=== PATIENT | female | born 1955 | race Caucasian/White ===

== ENCOUNTER 2024-01-09 05:31 | Observation (INO) ==
--- NOTE | 2023-12-30 09:45 | Anesthesiology Consultation ---
Date of Service December 30, 2023 Assessment & Plan (1) Encounter for pre-operative examination: - Infectious disease screening: Per assessment on 12/30/23: No known infectious disease contacts or current infectious disease symptoms. No noted recent Covid positive test result. - Preop testing: No recent/noted EKG. Will order EKG for DOS. Chart Review Chart Review: Acceptable Risk for Surgery (pending preop EKG DOS) and Patient NOT seen in Pre Admission Testing History Surgery Operation Date: 01/09/24 10:50 Proposed Procedures p Robotic Assisted Hysterectomy, Bilateral Salpingo-Oophorectomy, Robotic Sacral Colpopexy - Lenin Corrigan MD Height/Weight Height: 5 ft 3 in Weight: 72.121 kg Allergies Allergy/AdvReac Type Severity Reaction Status Date / Time Penicillins Allergy Unknown Rash Verified 12/30/23 07:53 sulfamethoxazole Allergy Unknown Rash Verified 12/30/23 07:53 [From Bactrim] trimethoprim [From Bactrim] Allergy Unknown Rash Verified 12/30/23 07:53 Medications Home Medications Medication Instructions Recorded Confirmed Last Taken atorvastatin 10 mg tablet 5 mg PO PM 04/30/19 12/30/23 06/21/19 22:30 levothyroxine 112 mcg capsule 112 mcg PO QAM 04/30/19 12/30/23 06/22/19 05:30 vitamin B12 2,500 mcg-folic acid 1 tab PO QPM 12/30/23 12/30/23 Unknown 400 mcg disintegrating tablet Past Medical History Medical History Hyperlipidemia Hypothyroidism Prolapse of female bladder, acquired Past Family History Family History Mother Family history of reaction to anesthesia Mother "stopped breathing" during colonoscopy- felt to be r/t Versed per patient Father Family history of diabetes mellitus Past Surgical History Surgical History Family history of anesthesia complication Mother "stopped breathing" during colonoscopy- felt to be r/t Versed per patient History of bilateral tubal ligation History of colonoscopy History of foot surgery right hammertoe Hx of bilateral cataract extraction Hx of wisdom tooth extraction Social History Smoking Status: Never smoker Do You Dip or Chew Tobacco: No Hx Alcohol Use: No Hx Substance Use: No substance use type: does not use Lab Results Anesthesia Preop Results Results Anesthesia Widget: WBC 5.19 K/ul (4.8-10.8) 12/24/23 Hgb 13.5 g/dl (12.0-16.0) 12/24/23 Hct 41.9 % (37.0-47.0) 12/24/23 Plt 199 K/uL (130-400) 12/24/23 Na 140 mmol/L (136-145) 12/24/23 K 3.7 mmol/L (3.5-5.1) 12/24/23 Cl 106 mmol/L (98-107) 12/24/23 CO2 29 mmol/L (21-32) 12/24/23 BUN 17 mg/dl (6-23) 12/24/23 Creat 0.98 mg/dl (0.6-1.2) 12/24/23 Glucose Level 87 mg/dl (70-99(Fasting)) 12/24/23 Blood Type O Positive 12/24/23 Antibody Screen NEGATIVE 12/24/23
--- NOTE | 2024-01-09 05:17 | History & Physical Report ---
Date of Service January 09, 2024 Assessment & Plan (1) Uterovaginal prolapse, incomplete: Plan: We reviewed uterovaginal prolapse and therapy options. She is not interested in pessary therapy or vaginal robinson tissue repair. She prefers robotic hysterectomy, bso, sacral colpopexy, possible sling, cystoscopy. We reviewed the risks of infection, bleeding, injury, pain, mesh exposure, urinary retention, incontinence, recurrence. All questions answered. Informed consent confirmed. Present on Admission?: Yes Admission and Anticipated Discharge Date Admission Date: 01/09/2024 Anticipated date of discharge: 01/10/24 History of Present Illness Chief Complaint: Vaginal prolapse Primary Care Provider: Kathryn Young Ofe Nina is a 68 year old female P2 with a palpalbe vaginal bulge and pelvic pressure. She has occasional urgency and urge incontinence. Denies INES. Allergies Allergy/AdvReac Type Severity Reaction Status Date / Time Penicillins Allergy Unknown Rash Verified 12/30/23 07:53 sulfamethoxazole Allergy Unknown Rash Verified 12/30/23 07:53 [From Bactrim] trimethoprim [From Bactrim] Allergy Unknown Rash Verified 12/30/23 07:53 Home Medications Medication Instructions Recorded Confirmed Type atorvastatin 10 mg tablet 5 mg PO PM 04/30/19 12/30/23 History levothyroxine 112 mcg capsule 112 mcg PO QAM 04/30/19 12/30/23 History vitamin B12 2,500 mcg-folic acid 1 tab PO QPM 12/30/23 12/30/23 History 400 mcg disintegrating tablet Past Med/Surg History Medical History Prolapse of female bladder, acquired Hypothyroidism Hyperlipidemia Surgical History Family history of anesthesia complication Mother "stopped breathing" during colonoscopy- felt to be r/t Versed per patient Hx of wisdom tooth extraction Hx of bilateral cataract extraction History of foot surgery right hammertoe History of colonoscopy History of bilateral tubal ligation Family History Mother Family history of reaction to anesthesia Mother "stopped breathing" during colonoscopy- felt to be r/t Versed per patient Father Family history of diabetes mellitus Social History Smoking Status: Never smoker Second Hand Exposure: No; Do You Dip or Chew Tobacco: No; Tobacco Cessation Education Requested by Patient: No Hx Alcohol Use: No Hx Substance Use: No Preferred Language: Qatari Communication Ability: Effective General Education Instructor Required: No Beliefs That Will Affect Care: None Current Living Situation: Spouse Other Information That Helps Us Care for You: No Feels Safe at Home: Yes Safety Concerns: Feels Safe At This Time Assistive Devices: Glasses Review of Systems Review of Systems: All systems reviewed & are unremarkable except as noted in HPI & below Physical Exam Constitutional: WD/WN, vitals as above Eyes: PERRL, conjunctivae normal, anicteric sclerae Neck: trachea midline, no thyromegaly Respiratory: normal respiratory effort Cardiovascular: Rate/Rhythm: regular rate and regular rhythm Gastrointestinal (Abdomen): normal bowel sounds, soft, nontender, no hepatosplenomegaly Musculoskeletal: Extremities: extremities normal to inspection Skin: no rashes, warm and dry Psychiatric: A+Ox3, euthymic affect Code Status & VTE Plan VTE Prophylaxis Plan VTE Prophylaxis will be ordered: Yes
[~2024-01-09 05:31] MED LIST: GENTAMICIN CONSULT ACTIVE PRN
[2024-01-09] MEDS ORDERED: GENTAMICIN SULFATE 300 MG in DEXTROSE 5% 100 ML IV SCH (06:00)
[2024-01-09] MEDS: LR 15ML/HR IV SCH (06:17)
[2024-01-09] MEDS: GENTAMICIN SULFATE 300 MG in DEXTROSE 5% 100 ML IV SCH (06:31)
[2024-01-09] MEDS ORDERED: PROPOFOL IV EMULSION 10 MG/ML 20 ML VIAL IV ONE ×8 (06:49→06:54)
[2024-01-09] MEDS ORDERED: DEXAMETHASONE SOD INJ 4 MG/ML VIAL ONE (06:50)
[2024-01-09] MEDS ORDERED: LIDOCAINE 2% 2 ML VIAL/AMP(20MG/ML) INFIL ONE (06:50)
[2024-01-09] MEDS ORDERED: fentaNYL citrate PF 100 MCG/2 ML VIAL ONE ×2 (06:50→08:01)
[2024-01-09] MEDS ORDERED: MIDAZOLAM HCL 1 MG/ML 2ML VIAL ONE (06:50)
[2024-01-09] MEDS ORDERED: ROCURONIUM BROMIDE 10 MG/ML 5 ML VIAL IV ONE ×2 (06:50→08:00)
[2024-01-09] MEDS ORDERED: ONDANSETRON INJ 2 MG/ML 2 ML VIAL ONE (06:50)
[2024-01-09] MEDS ORDERED: ATROPINE SULFATE 0.1 MG/ML 10ML SYR IV PRN (06:55)
[2024-01-09] MEDS ORDERED: ONDANSETRON INJ 2 MG/ML 2 ML VIAL IV PRN ×2 (06:55→10:25)
[2024-01-09] MEDS ORDERED: HYDROmorphone INJ 2 MG/ML SYR/VIAL IV PRN (06:55)
[2024-01-09] MEDS ORDERED: ePHEDrine sulfate 50 MG/ML AMP IV PRN (06:55)
[2024-01-09] MEDS: metroNIDAZOLE 500 MG/100 ML BAG IV SCH (07:37)
[2024-01-09] MEDS ORDERED: ePHEDrine sulfate 50 MG/5 ML SYR ONE (08:03)
[2024-01-09] MEDS: PREMARIN VAG CRM 14 APPLN/30 GM TUBE ONE (08:55)
[2024-01-09] MEDS ORDERED: SUGAMMADEX SODIUM 200 MG/2 ML VIAL IV ONE (09:22)
[2024-01-09] MEDS: BUPIVACAINE/EPINEPHRINE 0.5% MPF 1:200,000 30 ML VIAL ONE (10:13)
[2024-01-09] MEDS: BUPIVACAINE 0.5 % 5 MG/1 ML MPF 30ML VIAL ONE (10:14)
[2024-01-09] MEDS ORDERED: oxyCODONE/ACETAMINOPHEN 5mg/325mg TAB PO PRN ×2 (10:25)
[2024-01-09] MEDS: fentaNYL citrate PF 100 MCG/2 ML VIAL IV PRN (10:32)
--- NOTE | 2024-01-09 10:36 | Operative Report ---
Post Operative Report Pre & Post Diagnosis Operation Date: 01/09/24 07:30 Pre-Op Diagnosis: Uterovaginal Prolapse Post-Op Diagnosis: Uterovaginal Prolapse I identified the patient and participated in the time-out.: Yes Procedure Operation Date: 01/09/24 07:30 Actual Procedures p Robotic Assisted Hysterectomy, Bilateral Salpingo-Oophorectomy, Robotic Sacral Colpopexy, Cystoscopy(Not Applicable) - Lenin Corrigan MD Surgeon Lenin Corrigan MD Plasterer Maintenance Aster Saldana PA-C Estimated Blood Loss 25 Findings Consistent with Post-Op Diagnosis Grade 3 uterine prolapse, cystocele. Normal appearing tubes, ovaries, cervix and uterus. Normal cystoscopy with excellent efflux of ureters Fluids crystalloid Specimens cervix, uterus, tubes, and ovaries Drains Haskins catheter Anesthesia Type General Complications none Disposition Accompanied Patient To Recovery: Yes Disposition: Recovery Room Indications Symptomatic uterovaginal prolapse Description of Procedure After Ofe Nina was identified in the preoperative area, we discussed the indications, risks, and benefits of the procedure. All questions answered. Informed consent signed. Patient was then taken to the operating room, placed comfortably in stirrups, given general anesthesia by anesthesia service, and placed in dorsal lithotomy position. She was prepped and draped in the usual sterile fashion. Time out was performed. A haskins catheter was placed. The cervix was grasped with a single tooth tenaculum and was sounded to 8 cm. The cervix was dilated and a medium V-care uterine manipulator was applied. Abdominally, the umbicilus was infiltrated with local anesthesia. An 8 mm incision was made and an 8 mm trocar was advanced under direct visualization into the abdominal cavity. The abdomen was insufflated. Two 8 mm trocars were placed on the left and two 8 mm trocars were placed on the right. The patient was placed in trendelenburg to allow the small bowel to retract out the pelvis. The robot was docked. The ureters were identified. The IP ligaments were ve ssel sealed and transected bilaterally. The round ligaments were vessel sealed and transected bilaterally. The bladder flap was developed. The uterine vessels were dissected. The uterine vessels were vessel sealed and transected at the level of the cervical cup bilaterally. The colpotomy incision was made. The cervix, uterus, tubes and ovaries were delivered out the vagina. The vaginal cuff was closed with 0 V-Lock suture in two layers. The bladder was dissected off the anterior vaginal wall. The rectum was dissected off the posterior vaginal wall. A peritoneal incision was made at the level of the sacral promontory and extended along the right juan-colic gutter. The Y-mesh was sutured to the posterior and anterior vaginal forte with six interrupted sutures of CV-3 Bettendorf-adwoa suture on each side. The tail end of the y-mesh was secured to the anterior longitudinal ligament just below the sacral promontory with two interrupted sutures of CV-0 Bettendorf-adwoa. The peritoneum was closed with 2-0 V-lock suture in a running fashion. The robot was undocked. The incisions were closed with 4-0 Monocryl in a subcuticular fashion and dressed with glue. The haskins was removed and cystoscopy was performed with 250 ml of irrigation fluid. Systematic inspection of the bladder dome, trigone, and urethra revealed no lesions. Excellent efflux of clear urine was demonstrated from each ureter. The bladder was drained, the scope removed, and the Haskins catheter was placed. The vagina was irrigated. The vaginal cuff was intact and the vagina was packed with estrogen cream and vaginal packing. All sponge, lap, and needle counts were correct. The patient was awakened, extubated, and sent to recovery room in good condition. I attest to the content of the Intraoperative Record and any orders documented therein. Any exceptions are noted below. No qualified resident was available. Aster Saldana, Physican Plasterer Maintenance, was necessary for patient positioning, draping, retraction, robotic docking and instrument exchange, and wound closure.
--- NOTE | 2024-01-09 10:50 | Electrocardiogram Report ---
Test Reason : Blood Pressure : / mmHG Vent. Rate : 053 BPM Atrial Rate : 053 BPM P-R Int : 160 ms QRS Dur : 080 ms QT Int : 450 ms P-R-T Axes : 048 086 076 degrees QTc Int : 422 ms Sinus bradycardia Low voltage QRS Borderline ECG No previous ECGs available Confirmed by Ab Rosen ([id number]) on 01/09/2024 10:50:00 AM Referred By: Lenin Corrigan Confirmed By:Ab Rosen
--- NOTE | 2024-01-09 12:18 | Anesthesiology Progress Note ---
Date of Service January 09, 2024 Anesthesia Post Procedure Vital Signs Vital Signs: Temp Pulse Pulse Resp BP Pulse Ox O2 Del Method 01/09/24 11:30 36.5 C 71 16 91/74 L 97 Nasal Cannula 01/09/24 11:10 36.4 C L 68 16 104/62 96 Nasal Cannula 01/09/24 11:00 68 15 101/63 96 Nasal Cannula 01/09/24 10:50 66 15 95/63 L 96 Oxymask 01/09/24 10:40 66 15 106/60 96 Oxymask 01/09/24 10:30 70 14 114/72 96 Oxymask 01/09/24 10:24 36.0 C L 72 16 109/73 99 Oxymask 01/09/24 05:52 36.6 C 66 18 115/68 98 Room Air O2 Flow Rate 01/09/24 11:30 1 01/09/24 11:10 2 01/09/24 11:00 2 01/09/24 10:50 5 01/09/24 10:40 5 01/09/24 10:30 5 01/09/24 10:24 5 01/09/24 05:52 Transfer of Care Handoff Completed per policy Notes Mental Status: alert / awake / arousable and participated in evaluation Patient Amnestic to Procedure: Yes Nausea / Vomiting: adequately controlled Pain: adequately controlled Airway Patency, RR, SpO2: stable & adequate BP & HR: stable & adequate Hydration State: stable & adequate Anesthetic Complications: no major complications apparent and Pt Satisfied with anesthetic care
--- OUTSIDE RECORDS SUMMARY | 2024-01-09 15:12 | External Medical Summary | Summary of Care ---
Author Name Unknown Organization [facility] Address [address] [facility] [place] [address] Phone [phone] Care Team Providers Care Lumber Planer Name Role Phone Kathryn Young PA-C Primary Care Provider Encounter Details Date Type Department Care Team (Late st Contact Info) Description 12/24/2023 Orders Only Urogynecology [facility] [address] [place] [address] Lenin Corrigan MD [address] [place] [id number] Allergies Active Allergy Reactions Criticality Noted Date Comments Penicillins Hives High 05/25/2007 documented as of this encounter (statuses as of 12/24/2023) Medications Medication Sig Dispensed Refills Start Date End Date Status LEVOTHYROXINE SODIUM 125 MCG OR TABS 1 TABLET DAILY 0 05/25/2007 Activ e atorvaSTATin (LIPITOR) 10 MG TabletIndications:baljit es 1/2 tablet daily Take 1 Tablet by mouth in the morning. 0 Active Atorvastatin Calcium 10 MG Oral Tablet (Lipitor) Take 1/2 Tablet by mouth daily. 45 Tablet 1 07/08/2023 Active Levothyroxine Sodium 112 MCG Oral Tablet (Levoxyl) take 1 tablet by mouth every day 90 Tablet 1 08/25/2023 Active documented as of this encounter (statuses as of 12/24/2023) Active Problems Problem Noted Date Diagnosed Date Pigmented Purpura Legs 05/25/2007 documented as of this encounter (statuses as of 12/24/2023) Social History Tobacco Use Types Packs/Day Years Used Date Smoking Tobacco: Never Alcohol Use Standard Drinks/Week Comments Not Asked 0 (1 standard drink = 0.6 oz pur e alcohol) Sex and Gender Information Value Date Recorded Sex Assigned at Not on file Gender Identity Not on file Sexual Orientation Not on file Job Start Date Occupation Industry Not on file Not on file Not on file documented as of this encounter Plan of Treatment Upcoming Encounters Date Type Department Care Team (Late st Contact Info) Description 01/22/2024 3:10 PM EDT Telemedicine Urogynecology [facility] [address] [place] [address] Lenin Corrigan MD [address] [place] [address] 02/17/2024 9:40 AM EDT Office Visit BUSINESS ANALYT[employer] FACULTY MEMBER [facility] L[facility] [address] [place] [id number] Lenin Corrigan MD [address] [place] [phone] Scheduled Procedures Name Priority Associated Diagnoses Date/Ti me COLONOSCOPY FLEXIBLE PROXIMA L DIAGNOSTIC Recall Family history of colonic polyps Health Maintenance Due Date Last Done Comments Depression Screening 1966 Hepatitis C Screening 1972 DTaP,Tdap,and Td Vaccines (1 - Tdap) 1973 Zoster Vaccines (1 of 2) 2004 DXA Scan 2019 Pneumococcal Vaccine: 65+ Years (1 of 1 - PCV) 2019 COVID-19 Vaccine ( - season) 2023 10/09/2021, 01/05/2021, 12/08/2020 TSH 10/07/2024 10/07/2023, 03/05, 01/06/2023, Additional history exists Mammogram 10/24/2024 10/24/2023, 10/04, 09/02/2022, Additional history exists Diabetes Screening 10/07/2026 12/24/2023, 1 12/08/2022, 04/01/2023, Additional history exists COLONOSCOPY-EVERY 5 YRS AGES 18-100 10/03/2027 10/03/2022, 10/03/2022, 04/04/2016, Additional history exists Lipid Panel 10/07/2028 10/07/2023, 03/05, 08/28/2020 Influenza Vaccine (FLU shot) Completed , 10/22/2023, 10/07/2022, Additional history exists GARDASIL-HPV IMMUNIZATION SERIES Aged Out No longer eligible based on patient's age to complete this topic Hepatitis B Aged Out No longer eligi ble based on patient's age to complete this topic MENINGOCOCCAL (MENACTRA/MENVEO) Aged Out No longer eligible based on patient's age to complete this topic documented as of this encounter Medical Devices Not on filedocumented as of this encounter Procedures Procedure Name Priority Date/Time Associated Diagnosis Comments CHEMISTRY-OUTSIDE Routine 12/24/2023 documented in this encounter Results * CHEMISTRY-OUTSIDE (12/24/2023) Not all results display below - see scan for full detail SEE SCAN: BMP, TYPE AND SCREEN OUTSIDE LAB (SEE SCANNED REPORT) CREATININE-OUTSI DE LAB 0.98 0.6 - 1.2 MG/DL OUTSIDE LAB (SEE SCANNED REPORT) EGFR-OUTSIDE LAB 58.9 ML/MIN/1. 73M2 OUTSIDE LAB (SEE SCANNED REPORT) POTASSIUM-OUTSID E LAB 3.7 3.5 - 5.1 MMOL/L OUTSIDE LAB (SEE SCANNED REPORT) GLUCOSE-OUTSIDE LAB 87 70 - 99 MG/DL OUTSIDE LAB (SEE SCANNED REPORT) HOURS FASTING OUTSID E LAB (SEE SCANNED REPORT) TRIGLYCERIDES-OU TSIDE LAB OUTSIDE LAB (SEE SCANNED REPORT) CHOLESTEROL-OUTS CHAIM LAB OUTSIDE LAB (SEE SCANNED REPORT) HDL-OUTSIDE LAB OUTS CHAIM LAB (SEE SCANNED REPORT) CHOL/HDL RATIO-OUTSIDE LAB OUTSIDE LAB (SEE SCANNED REPORT) LDL (CALCULATED)-OUT SIDE LAB OUTSIDE LAB (SEE SCANNED REPORT) LDL (DIRECT MEASURE)-OUTSIDE LAB OUTSIDE LAB (SEE SCANNED REPORT) HEMOGLOBIN, [id number] LAB OUTSIDE LAB (SEE SCANNED REPORT) PHOSPHORUS-OUTSI DE LAB OUTSIDE LAB (SEE SCANNED REPORT) PTH-OUTSIDE LAB OUTS CHAIM LAB (SEE SCANNED REPORT) MICROALBUMIN RATIO-OUTSIDE LAB OUTSIDE LAB (SEE SCANNED REPORT) PROTEIN, UA-OUTSIDE LAB OUTSIDE LAB (SEE SCANNED REPORT) HEMOGLOBIN-OUTSI DE LAB OUTSIDE LAB (SEE SCANNED REPORT) 12/24/2023 Lenin Corrigan MD LABORATORY OUTSIDE LAB (SEE SCANNED REPORT) documented in this encounter Care Teams Lumber Planer Relationship Specialty Start Date End Date Kathryn Young PA-C [address] [facility] [place] [address] PCP - General Physician Sizing Machine Tender 10/03/22 documented as of this encounter
--- OUTSIDE RECORDS SUMMARY | 2024-01-09 15:12 | External Medical Summary | Summary of Care ---
Author Name Unknown Organization [facility] Address [address] [facility] [place] [address] Phone [phone] Care Team Providers Care Medical Assisting Program Director Name Role Phone Kathryn Young PA-C Primary Care Provider Encounter Details Date Type Department Care Team (Late st Contact Info) Description 12/24/2023 Orders Only Urogynecology [facility] [address] [place] [address] Lenin Corrigan MD [address] [place] [phone] Allergies Active Allergy Reactions Criticality Noted Date [...] Description 01/22/2024 3:10 PM EDT Telemedicine Urogynecology [facility] [address] [place] [address] Lenin Corrigan MD [address] [place] [address] 02/17/2024 9:40 AM EDT Office Visit [employer]IATION PROGRAM MANAGER Urology [facility] [address]iao [address] [place] [address] Lenin Corrigan MD [address] [place] [phone] Scheduled Procedures Name Priority Associated Diagnoses Date/Ti [...] 09/02/2022, Additional history exists Diabetes Screening 10/07/2026 10/07/2023, 0 04/01/2023, 08/28/2020 COLONOSCOPY-EVERY 5 YRS AGES 18-100 10/03/2027 10/03/2022, 10/03/2022, 04/04/2016, Additional history exists Lipid Panel 10/07/2028 10/07/2023, 05, 08/28/2020 Influenza Vaccine (FLU shot) Completed , [...] below - see scan for full detail OUTSIDE LAB (SEE SCANNED REPORT) Comment:SEE SCAN; CBCD CREATININE-OUTSID E LAB OUTSIDE LAB (SEE SCANNED REPORT) EGFR-OUTSIDE LAB OUT SIDE LAB (SEE SCANNED REPORT) POTASSIUM-OUTSIDE LAB OUTSIDE LAB (SEE SCANNED REPORT) GLUCOSE-OUTSIDE LAB OUTSIDE LAB (SEE SCANNED REPORT) HOURS FASTING OUTSID E LAB (SEE SCANNED REPORT) TRIGLYCERIDES-OUT SIDE LAB OUTSIDE LAB (SEE SCANNED REPORT) CHOLESTEROL-OUTSI DE LAB OUTSIDE LAB (SEE SCANNED REPORT) HDL-OUTSIDE LAB OUTS CHAIM LAB (SEE SCANNED REPORT) CHOL/HDL RATIO-OUTSIDE LAB OUTSIDE LA B (SEE SCANNED REPORT) LDL (CALCULATED)-OUTS CHAIM LAB OUTSIDE LAB (SEE SCANNED REPORT) LDL (DIRECT MEASURE)-OUTSIDE LAB OUTSIDE LAB (SEE SCANNED REPORT) HEMOGLOBIN, [id number] LAB OUTSIDE LAB (SEE SCANNED REPORT) PHOSPHORUS-OUTSID E LAB OUTSIDE LAB (SEE SCANNED REPORT) PTH-OUTSIDE LAB OUTS CHAIM LAB (SEE SCANNED REPORT) MICROALBUMIN RATIO-OUTSIDE LAB OUTSIDE LA B (SEE SCANNED REPORT) PROTEIN, UA-OUTSIDE LAB OUTSIDE LAB (SEE SCANNED REPORT) HEMOGLOBIN-OUTSID E LAB 13.5 12.0 - 16.0 G/DL OUTSIDE LAB (SEE SCANNED REPORT) 12/24/2023 Lenin Corrigan MD LABORATORY OUTSIDE LAB (SEE SCANNED REPORT) documented in this encounter Care Teams Medical Assisting Program Director Relationship Specialty Start Date End Date Kathryn Young PA-C [address] [facility] [place] [address] PCP - General Physician Automobile Lights Assembler 10/03/22 documented as of this encounter
[2024-01-09] MEDS: ACETAMINOPHEN 325 MG TAB PO PRN (19:32)
[2024-01-09] MEDS: ATORVASTATIN 10 MG TAB PO ONE (19:33)
[2024-01-10] MEDS: LEVOTHYROXINE SODIUM 112 MCG TABLET PO ONE (06:07)
[2024-01-10 06:26] LABS: Basophils # (auto) 0.02 K/uL (0.00-0.20); Basophils % (auto) 0.2 %; Eosinophils # (auto) 0.02 K/uL (0.00-0.50); Eosinophils % (auto) 0.2 %; Hematocrit (blood only) 38.3 % (37.0-47.0); Hemoglobin 12.8 g/dl (12.0-16.0); Immature Granulocytes # (auto) 0.05 K/uL (0.01-0.20); Immature Granulocytes % (auto) 0.4 %; Lymphocytes # (auto) 1.71 K/uL (1.20-3.40); Lymphocytes % (auto) 15.1 %; Mean Corpuscular Hemoglobin 28.1 pg (25.0-34.0); Mean Corpuscular Hgb Conc 33.4 g/dL (32.0-36.0); Mean Platelet Volume 8.8 fL (9.4-12.4); Monocytes # (auto) 0.61 K/uL (0.11-0.59); Monocytes % (auto) 5.4 %; Neutrophils # (auto) 8.88 K/uL (1.40-6.50); Neutrophils % (auto) 78.7 %; Platelet Count 215 K/uL (130-400); RDW Coefficient of Variation 13.2 % (11.5-14.5); RDW Standard Deviation 40.8 fL (36.4-46.3); Red Blood Count 4.56 M/uL (4.20-5.40); White Blood Count 11.29 K/ul (4.8-10.8)
[2024-01-10 06:35] LABS: BUN Creatinine Ratio 14.8 (10-20); Calcium 8.7 mg/dl (8.6-10.3); Est GFR (African American) 77.7 ml/min; Potassium 4.1 mmol/L (3.5-5.1)
--- NOTE | 2024-01-10 07:54 | Gynecologic Progress Note ---
Date of Service January 10, 2024 Assessment & Plan (1) Uterovaginal prolapse, incomplete: Plan: POD#1 s/p robotic hysterectomy bso sacral colpopexy Discharge home Post op instructions reviewed. All questions answered.. Present on Admission?: Yes Admission and Anticipated Discharge Date Admission Date: January 09, 2024 Anticipated date of discharge: 01/10/24 Subjective Patient feeling well. No pain, no nausea, no SOB, no CP. Passing flatus Review of Systems Review of Systems: All systems reviewed & are unremarkable except as noted in HPI & below Physical Exam Constitutional: WD/WN, vitals as above Eyes: PERRL, conjunctivae normal, anicteric sclerae Neck: trachea midline, no thyromegaly Respiratory: normal respiratory effort Cardiovascular: Rate/Rhythm: regular rate and regular rhythm Gastrointestinal (Abdomen): normal bowel sounds, soft, nontender, no hepatosplenomegaly Musculoskeletal: Extremities: extremities normal to inspection Skin: no rashes, warm and dry Psychiatric: A+Ox3, euthymic affect Genitourinary: Vaginal packing removed. Scant dry blood stain. Results & Data Vital Signs (Past 12 Hours) Vital Signs Temp Pulse Resp BP Pulse Ox O2 Del Method 01/10/24 02:42 36.9 C 74 18 113/73 98 Room Air 01/10/24 00:00 Room Air 01/09/24 22:48 37.1 C 78 18 108/68 94 Room Air Laboratory Results hemoglobin 12.8 Creatinine 0.88
--- NOTE | 2024-01-10 07:59 | Discharge Summary ---
Date of Service January 10, 2024 Admission HPI Per Admitting Provider Ofe Nina is a 68 year old female P2 with a palpalbe vaginal bulge and pelvic pressure. She has occasional urgency and urge incontinence. Denies INES. Admission Exam (Per Admitting) Constitutional WD/WN, vitals as above Eyes PERRL, conjunctivae normal, anicteric sclerae Neck trachea midline, no thyromegaly Respiratory normal respiratory effort Cardiovascular Rate/Rhythm: regular rate and regular rhythm Gastrointestinal (Abdomen) normal bowel sounds, soft, nontender, no hepatosplenomegaly Musculoskeletal Extremities: extremities normal to inspection Skin no rashes, warm and dry Psychiatric A+Ox3, euthymic affect Discharge Data Procedures Performed Operation Date: 01/09/24 07:30 Actual Procedures p Robotic Assisted Hysterectomy, Bilateral Salpingo-Oophorectomy, Robotic Sacral Colpopexy,(Not Applicable) - Lenin Corrigan MD s Cystoscopy - Lenin Corrigan MD Hospital Course (1) Uterovaginal prolapse, incomplete: POD#1 s/p robotic hysterectomy bso sacral colpopexy Discharge home Post op instructions reviewed. All questions answered..
[2024-01-10] MEDS: IBUPROFEN 600 MG TAB PO PRN (09:11)
== END 2024-01-10 09:51 | disposition home or self-care (01) ==
LOC: ASU 05:31 → 4E1 05:31